=== PATIENT | female | born 1980 | race Caucasian/White ===

== ENCOUNTER → 2018-04-18 | Outpatient (CLI) | payer OTHER ==
[~2018-04-18] MED LIST: ALPR.5 PO; CRINONE1.45 GM; MULVITMINE PO
== END | disposition home or self-care (01) ==
LOC: LAB SHORT 11:26 → PLD 11:26
DX: D22.5 Melanocytic nevi of trunk (principal); D22.72 Melanocytic nevi of left lower limb, including hip
CPT/HCPCS: 88305

== ENCOUNTER → 2018-12-15 | Outpatient (CLI) | payer OTHER ==
[2018-12-19 15:07] LABS: HPV 16 Negative (Negative); HPV 18 Negative (Negative); HPV OTHER HR TYPES Negative (Negative)
== END | disposition home or self-care (01) ==
LOC: LAB SHORT 18:32 → LAB 18:32
PROVIDERS: Physician Assistant
DX: Z12.4 Encounter for screening for malignant neoplasm of cervix (principal)
CPT/HCPCS: 87624; G0145

== ENCOUNTER 2024-03-28 12:44 | Day surgery (SDC) | payer OTHER ==
[~2024-03-28] VITALS: Ht 162.6 cm; Wt 70.1 kg
[~2024-03-28 12:44] MED LIST changes: +Lactated Ringer's 1,000 ML IV ONE; +propofoL 50 ML IV ONE
[2024-03-28] MEDS ORDERED: Lactated Ringer's 1,000 ML IV ONE (13:46)
--- NOTE | 2024-03-28 14:09 | NUR ---
03/28/24 1409 DARELL SCHROEDER PT ACTIVATED THE CALL LIGHT AND THIS RN ENTERED ROOM. PT REPORTS HER IV "FEELS FUNNY" AND THIS RN INSPECTED AND NOTED SWELLING DIRECTLY SURROUNDING THE IV INSERTION SITE APPROXIMATELY ONE INCH. IV WAS DISCONTINUED AND NEW IV PLACED TO R AC. PT EDUCATED THERE MAY BE BRUISING AND SWELLING SHOULD RESOLVE IN 48 HOURS. SHE MAY APPLY HOT AND ICE ALTERNATING TO AID IN THE HEALING PROCESS.
[2024-03-28 15:19] VITALS: BP 121/79
== END 2024-03-28 15:38 | disposition home or self-care (01) ==
LOC: ORSCSDS 12:44
PROVIDERS: Internal Medicine Gastroenterology
PROC: 0DBN8ZX Excision of Sigmoid Colon, Via Natural or Artificial Opening Endoscopic, Diagnostic (ICD-10-PCS; principal; 2024-03-28 14:15)
PROC: 0DBG8ZX Excision of Left Large Intestine, Via Natural or Artificial Opening Endoscopic, Diagnostic (ICD-10-PCS; principal; 2024-03-28 14:15)
PROC: 0DBF8ZX Excision of Right Large Intestine, Via Natural or Artificial Opening Endoscopic, Diagnostic (ICD-10-PCS; principal; 2024-03-28 14:15)
PROC: 0DBB4ZZ Excision of Ileum, Percutaneous Endoscopic Approach (ICD-10-PCS; principal; 2024-03-28 14:15)
DX: K52.9 Noninfective gastroenteritis and colitis, unspecified (principal); K63.5 Polyp of colon; K63.3 Ulcer of intestine; K57.30 Diverticulosis of large intestine without perforation or abscess without bleeding; E03.9 Hypothyroidism, unspecified
CPT/HCPCS: 88305; J2704; J7120

== ENCOUNTER → 2024-04-13 | Outpatient (CLI) | payer OTHER ==
[~2024-04-13] MED LIST changes: -Lactated Ringer's 1,000 ML IV ONE; -propofoL 50 ML IV ONE
[2024-04-15 22:58] LABS: CALPROTECTIN,FECAL 66 ug/g (<=49)
== END ==
LOC: LAB 10:27 → LAB SHORT 10:27
PROVIDERS: Internal Medicine Gastroenterology
DX: K51.90 Ulcerative colitis, unspecified, without complications (principal)
CPT/HCPCS: 83993

== ENCOUNTER → 2024-05-17 | Outpatient (CLI) | payer OTHER ==
[2024-05-25 15:09] LABS: HPV HIGH RISK BY TMA Not Detected; HPV SOURCE Cervical
== END | disposition home or self-care (01) ==
LOC: LAB SHORT 15:08 → LAB 15:08
PROVIDERS: Physician Assistant
DX: Z01.419 Encounter for gynecological examination (general) (routine) without abnormal findings (principal)
CPT/HCPCS: 87624; G0123

== ENCOUNTER 2024-07-19 04:07 | Day surgery (SDC) | payer OTHER ==
[2024-07-19] MEDS ORDERED: Infliximab-DYYB 400 MG in NS 250 ML IV SCH (06:00)
[2024-07-19] MEDS ORDERED: Acetaminophen 325 MG TABLET PO SCH (07:05)
[2024-07-19] MEDS ORDERED: Hydrocortisone Sod Succinate 100 MG Vial IV SCH (07:05)
[2024-07-19] MEDS ORDERED: DiphenhydrAMINE HCL 25 MG Cap PO SCH (07:05)
[2024-07-19 14:49] VITALS: BP 126/70
[2024-07-19] MEDS ORDERED: INFLECTRA100 MG IV (14:54)
[2024-07-19] MEDS ORDERED: EUTHYROX50 MCG PO (14:55)
[2024-07-19 15:03] VITALS: BP 116/77
[2024-07-19 15:20] VITALS: BP 116/77
== END 2024-07-19 17:00 | disposition home or self-care (01) ==
LOC: ATC 04:07
DX: K50.10 Crohn's disease of large intestine without complications (principal); E03.9 Hypothyroidism, unspecified
CPT/HCPCS: 96375; 96413; 96415; A9270; J1720; J7050; Q5103

== ENCOUNTER 2024-08-09 09:15 | Day surgery (SDC) | payer OTHER ==
[~2024-08-09 09:15] MED LIST changes: +EUTHYROX50 MCG PO; +INFLECTRA100 MG IV
[2024-08-09] MEDS ORDERED: Infliximab-DYYB 400 MG in NS 250 ML IV SCH (12:40)
[2024-08-09] MEDS ORDERED: Hydrocortisone Sod Succinate 100 MG Vial IV SCH (13:15)
[2024-08-09] MEDS ORDERED: DiphenhydrAMINE HCL 25 MG Cap PO SCH (13:15)
[2024-08-09] MEDS ORDERED: Acetaminophen 325 MG TABLET PO SCH (13:15)
[2024-08-09 13:56] VITALS: BP 124/75
[2024-08-09 14:34] VITALS: BP 123/75
[2024-08-09 14:50] VITALS: BP 120/67
[2024-08-09 15:06] VITALS: BP 126/83
[2024-08-09 15:22] VITALS: BP 110/72
== END 2024-08-09 16:33 | disposition home or self-care (01) ==
LOC: ATC 09:15
DX: K50.10 Crohn's disease of large intestine without complications (principal)
CPT/HCPCS: 96413; 96415; J7050; Q5103

== ENCOUNTER 2024-10-31 01:21 | Day surgery (SDC) | payer OTHER ==
[2024-10-31 15:04] VITALS: BP 121/90
== END 2024-10-31 17:30 | disposition home or self-care (01) ==
LOC: ATC 01:21
DX: K50.10 Crohn's disease of large intestine without complications (principal); E03.9 Hypothyroidism, unspecified; Z79.899 Other long term (current) drug therapy
CPT/HCPCS: 96375; 96413; 96415; J1720; J7050; Q5103

== ENCOUNTER → 2025-01-25 | Outpatient (CLI) | payer OTHER ==
[2025-01-30 15:33] LABS: CALPROTECTIN,FECAL 9 ug/g (<=49)
== END ==
LOC: LAB SHORT 14:43 → LAB 14:43
PROVIDERS: Physician Assistant Medical
DX: K50.919 Crohn's disease, unspecified, with unspecified complications (principal)
CPT/HCPCS: 83993

== ENCOUNTER 2025-02-20 00:24 | Day surgery (SDC) | payer OTHER ==
[2025-02-20 14:56] VITALS: BP 121/89
== END 2025-02-20 17:24 | disposition home or self-care (01) ==
LOC: ATC 00:24
DX: K50.10 Crohn's disease of large intestine without complications (principal); E03.9 Hypothyroidism, unspecified
CPT/HCPCS: 96413; 96415; J7050; Q5103

== ENCOUNTER 2025-03-06 10:33 | Day surgery (SDC) | payer OTHER ==
[~2025-03-06] VITALS: Ht 162.6 cm; Wt 69.8 kg
[~2025-03-06 10:33] MED LIST changes: +Glycopyrrolate 0.2 MG/ML 1MLVIAL ONE; +Ondansetron HCl 2 MG / ML 2ML Vial ONE; +ePHEDrine Sulfate 50 MG/ML 1ML Injection ONE
[2025-03-06 14:06] VITALS: BP 128/78
== END 2025-03-06 14:25 | disposition home or self-care (01) ==
LOC: ORSCSDS 10:33
PROVIDERS: Internal Medicine Gastroenterology
PROC: 0DBG8ZX Excision of Left Large Intestine, Via Natural or Artificial Opening Endoscopic, Diagnostic (ICD-10-PCS; principal; 2025-03-06 13:30)
PROC: 0DBB8ZX Excision of Ileum, Via Natural or Artificial Opening Endoscopic, Diagnostic (ICD-10-PCS; principal; 2025-03-06 13:30)
PROC: 0DBF8ZX Excision of Right Large Intestine, Via Natural or Artificial Opening Endoscopic, Diagnostic (ICD-10-PCS; principal; 2025-03-06 13:30)
DX: K50.90 Crohn's disease, unspecified, without complications (principal); Z79.899 Other long term (current) drug therapy
CPT/HCPCS: 88305; J0461; J2003; J2405; J2704; J7120